=== PATIENT | female | born 1985 | race Caucasian/White ===

== ENCOUNTER 2018-07-30 00:11 | Emergency (ER) | payer BC ==
--- NOTE | 2018-07-30 00:46 | ED ---
Lower Extremity - HPI Summary HPI Summary: 33-year-old female presents with complaints of left ankle pain. States that she was walking down a wet, slippery slope and she slipped causing a inversion injury to the ankle approximately 20 minutes prior to arrival. She was unable to bear weight immediately after the injury nor in the emergency room. Denies numbness or tingling. - History of Current Complaint Chief Complaint: EDExtremityLower Stated Complaint: "SLIPPED ON ICE AND HURT ANKLE" PER PT Time Seen by Provider: 07/30/18 00:20 Hx Obtained From: Patient Pain Intensity: 5 - Allergies/Home Medications Allergies/Adverse Reactions: Allergies Allergy/AdvReac Type Severity Reaction Status Date / Time nickel Allergy Swelling Verified 07/30/18 00:16 PMH/Surg Hx/FS Hx/Imm Hx Previously Healthy: Yes - Denies significant PMH - Surgical History Surgery Procedure, Year, and Place: None Infectious Disease History: No Infectious Disease History: Denies: Traveled Outside the [place] in Last 30 Days - Family History Known Family History: Positive: Non-Contributory - Social History Lives: With Family Review of Systems Constitutional: Negative Cardiovascular: Negative Respiratory: Negative Gastrointestinal: Negative Genitourinary: Negative Positive: Other - See HPI Positive: Bruising Negative: Paresthesia, Numbness All Other Systems Reviewed And Are Negative: Yes Physical Exam - Summary Physical Exam Summary: GENERAL APPEARANCE: Well developed, well nourished, alert and cooperative, and appears to be in no acute distress. CARDIAC: Normal S1 and S2. No S3, S4 or murmurs. Rhythm is regular. There is no peripheral edema, cyanosis or pallor. Extremities are warm and well perfused. Capillary refill is less than 2 seconds. Peripheral pulses intact. LUNGS: Clear to auscultation without rales, rhonchi, wheezing or diminished breath sounds. ABDOMEN: Positive bowel sounds. Soft, nondistended, nontender. No guarding or rebound. No masses or hepatosplenomegally. MUSKULOSKELETAL: Tenderness over the left medial malleolus and lateral malleolus with ecchymosis and moderate edema over the lateral malleolus. ROM limited by pain. Circulation and sensation intact distally. SKIN: Skin normal color, texture and turgor with no lesions or eruptions. Vital Signs On Initial Exam: Initial Vitals Temp Pulse Resp BP Pulse Ox 99.2 F 106 16 142/95 95 03/23/19 00:12 07/30/18 00:12 07/30/18 00:12 07/30/18 00:12 07/30/18 00:12 Procedures - Splinting Left Lower Extremity Location: Left lower leg Hand-Made Type: orthoglass Splint: Posterior short leg with foot at 90 degrees Pre-Proc Neuro Vasc Exam: normal Post-Proc Neuro Vasc Exam: normal Diagnostics - Vital Signs Vital Signs Temp Pulse Resp BP Pulse Ox 07/30/18 00:12 99.2 F 106 16 142/95 95 - Laboratory Lab Statement: Any lab studies that have been ordered have been reviewed, and results considered in the medical decision making process. - Radiology No standard instances Radiology Interpretation Completed By: ED Physician - Bimalleolar fracture of the left ankle with spacing though the joint space maintained Lower Extremity Course/Dx - Course Course Of Treatment: 33-year-old female presents with complaints of left ankle pain. States that she was walking down a wet, slippery slope and she slipped causing a inversion injury to the ankle approximately 20 minutes prior to arrival. She was unable to bear weight immediately after the injury nor in the emergency room. Denies numbness or tingling. Afebrile. Vital signs stable. Exam was remarkable for tenderness over the left medial malleolus and lateral malleolus with ecchymosis and moderate swelling over the lateral malleolus. Patient declined pain medication. X-ray shows a bimalleolar fracture of the left ankle. She was placed in a short posterior leg splint. Circulation and sensation were intact. Post-application. She was provided crutches and is to remain nonweightbearing until she follows up with orthopedic surgery within 3 days. A prescription for naproxen 500 mg 1 tablet every 12 hours for 5-7 days then every 12 hours as needed was sent to the pharmacy. Anticipatory guidance and warning symptoms are reviewed with the patient. Verbalizes understanding and agrees with plan of care. - Diagnoses Differential Diagnosis/HQI/PQRI: Positive: Contusion, Dislocation, Fracture ( Closed), Sprain Provider Diagnoses: Closed bimalleolar fracture of left ankle Discharge - Sign-Out/Discharge Documenting (check all that apply): Patient Departure Patient Received Moderate/Deep Sedation with Procedure: No - Discharge Plan Condition: Stable Disposition: HOME Prescriptions: Naproxen [Naproxen 500 mg tab] 500 mg PO Q12HR #30 tablet Patient Education Materials: Ankle Fracture (ED), Crutch Instructions (ED), Splint Care (ED) Referrals: No Primary Care Phys,NOPCP [Primary Care Provider] - Odessa Marr MD [Medical Doctor] - Additional Instructions: The x-ray performed in the emergency room tonight shows an unstable fracture of your left ankle. You will need to wear the splint that was applied at all times and remained nonweightbearing until you follow-up with the orthopedic surgeon. Apply ice to the affected area for 15-20 minutes at least 4 times a day to help with the pain and swelling. Be sure to keep her foot elevated while sitting to help reduce swelling. Take naproxen 500 mg 1 tablet every 12 hours with food for the next 5-7 days then may take every 12 hours as needed for pain. Follow-up with orthopedic surgery within 3 days. Call first thing on Wednesday morning to schedule an appointment. Return to the emergency room if you have severe pain that is not managed with pain medication, your foot or toes become cool and turning a pale or bluish color, he developed numbness or tingling in the foot or toes, or have any worsening of symptoms. - Billing Disposition and Condition Condition: STABLE Disposition: Home
[2018-07-30 01:43] VITALS: BP 161/84
== END 2018-07-30 01:40 | disposition home or self-care (01) ==
LOC: ED 00:11
DX: S82.855A Nondisplaced trimalleolar fracture of left lower leg, initial encounter for closed fracture (principal); X50.1XXA Overexertion from prolonged static or awkward postures, initial encounter; Y93.01 Activity, walking, marching and hiking; Y92.89 Other specified places as the place of occurrence of the external cause; Z91.048 Other nonmedicinal substance allergy status
CPT/HCPCS: 99283

== ENCOUNTER 2018-08-04 14:10 | Day surgery (SDC) | payer BC ==
[~2018-08-04 14:10] MED LIST: Buffered Lidocaine 1% SYRIN* 1 ML/SYRINGE INTRADERM ONE; Lactated Ringers 1000 ML Bag* 1,000 ML IV SCH; Sodium Citrate/Citric Acid* 15 ML UDC PO ONE
[2018-08-04] MEDS ORDERED: Sodium Citrate/Citric Acid* 15 ML UDC ONE (14:33)
[2018-08-04] MEDS ORDERED: Propofol* 0 MG/0 ML BTL ONE (14:36)
[2018-08-04] MEDS ORDERED: ceFAZolin 2 GM in NS PREMIX(*) 2 GM/100 ML BAG IVPB ONE (14:41)
[2018-08-04] MEDS ORDERED: fentaNYL* 50 MCG/ML 2 ML VIAL (100 MCG VIAL) ONE ×3 (15:18→17:10)
[2018-08-04] MEDS ORDERED: Propofol* 10 MG/ML 20 ML BTL ONE (15:19)
[2018-08-04] MEDS ORDERED: Dexamethasone IV* 4 MG/ML 1 ML (4 MG) ONE (15:19)
[2018-08-04] MEDS ORDERED: Lidocaine 2% PF * 5 ML VIAL ONE (15:19)
[2018-08-04] MEDS ORDERED: Midazolam* 1 MG/ML 2 ML VIAL (2 MG) ONE (15:19)
[2018-08-04] MEDS ORDERED: Ketorolac INJ* 30 MG/ML 1 ML VIAL ONE (15:19)
[2018-08-04] MEDS ORDERED: Ondansetron INJ* 2 MG/ML VIAL IV PRN (16:20)
[2018-08-04] MEDS ORDERED: Naloxone* 0.4 MG/ML 1 ML VIAL IV PRN (16:20)
[2018-08-04] MEDS ORDERED: Bupivacaine 0.5%* 50 ML VIAL ONE (16:34)
--- NOTE | 2018-08-04 17:06 | OP ---
Operative Report - Blank - Operative Report Date of Operation: 08/04/18 Note: PATIENT: Tonya Burger DATE OF : 1985 DATE OF SURGERY: 08/04/2018 SURGEON: Gaurav Claudio MD WAREHOUSE CHECKER: FARZAD Wynn, whos assistance was necessary for positioning, retraction, help with instrumentation, and closure. ANESTHESIOLOGIST: Dr. Tejeda PREOPERATIVE DIAGNOSIS: Left trimalleolar ankle fracture POSTOPERATIVE DIAGNOSIS: Left trimalleolar ankle fracture OPERATION: 1. Left trimalleolar ankle fracture open reduction and internal fixation of medial and lateral malleoli. 2. Stress views performed by surgeon utilizing fluoroscopy under anesthesia. ANESTHESIA: General IMPLANTS: Arthrex ankle fracture set plate and screws TOURNIQUET TIME: Less than 1 hour with a well-padded thigh tourniquet at 250mmHg SPECIMENS: none ESTIMATED BLOOD LOSS: minimal COMPLICATIONS: none STATUS: Stable from the operating room to the recovery room and then home. INDICATIONS FOR PROCEDURE: Tonya sustained a closed left ankle fracture. Both operative and non operative treatment alternatives were reviewed. Further, the nature and risks of surgery were reviewed in careful detail, in the office as well as the pre-operative holding area. Our discussions regarding the risks of surgery included, but were not limited to, infection, wound problems, nerve injury, neuroma, RSD, persistent symptoms, blood clot, nonunion, malunion, post-traumatic arthritis, hardware failure, failure of the surgery, and even the remote chance of catastrophic complication, including loss of limb. DESCRIPTION OF PROCEDURE: The patient was seen in the preoperative holding unit and informed written consent was obtained. The appropriate extremity was marked. The patient was then brought to the operating room and carefully positioned on the operating room table. Anesthesia was induced. All bony prominences were padded with great care. A well-padded thigh tourniquet was placed. A chlorhexidine based pre- scrub was performed followed by a chloraprep prep and drape in standard sterile fashion. A surgical safety pause was then conducted in which we confirmed the appropriate patient, extremity, planned procedure, availability of equipment, indication and administration of prophylactic antibiotics, and DVT prophylaxis in the form of a compression boot on the non-surgical extremity. I began with Esmarch exsanguination of the limb and inflated the tourniquet. I then utilized a laterally based incision overlying the distal fibula. Great care was taken to protect the superficial peroneal nerve, which was not visualized within the field of view. I dissected down through the soft tissue layers to expose the distal fibula. I then exposed the fracture. Fracture hematoma was removed. I gained a reduction utilizing a pointed reduction clamp. I placed an Arthrex anatomic fibula plate laterally and then confirmed the reduction and the position of the plate fluoroscopically. I placed screws to hold the plate to the bone. The provisional fixation was removed and then I again confirmed fluoroscopically the appropriate position of the plate and screw lengths. At this point, I provisionally tacked the lateral incision closed while I turned my attention medially. I made an approximately 4cm incision over the medial malleolus. The fracture was exposed and hematoma was removed. Reduction of the medial malleolar fracture was obtained with a pointed reduction clamp. I placed guidewires for a 4.0 mm cannulated screw. I confirmed the position of the guidewire fluoroscopically. I then overdrilled the wire and placed a partially threaded 4.0 mm cannulated screw with a washer due to the small size of the fragment. I then removed the guidewire and obtained fluoroscopic images. At this point, I performed a stress fluoroscopic examination. I utilized a Cotton test, as well as an external rotation stress test, to evaluate the distal tib-fib syndesmosis. There was no instability appreciated through the syndesmosis. I also performed a posteriorly directed stress test and there was no posterior instability appreciated, so I elected to treat the posterior malleolar fracture in a closed manner. At this point, we irrigated copiously and then closed in layers meticulously utilizing 3-0 Monocryl for the deep and subdermal layers and 3-0 nylon for the skin. A sterile dressing was then applied followed by a splint with the ankle in a neutral position. The patient was then awakened from anesthesia and transferred to the recovery room in stable condition. There were no complications. All needle and sponge counts were correct at the end of the case. ATTESTATION: I attest I was present and scrubbed and performed the critical portions of the procedure myself. POSTOPERATIVE PLAN: The postop plan is for [id number] for an anticipated duration of 6 weeks. Follow-up will be in 2 weeks. At that time we will likely transition into a [id number] short leg cast.
[2018-08-04] MEDS: fentaNYL* 50 MCG/ML 2 ML VIAL (100 MCG VIAL) IV PRN ×2 (17:14→17:39)
[2018-08-04] MEDS ORDERED: oxyCODONE TAB* 5 MG TAB ONE (17:29)
[2018-08-04 18:28] VITALS: BP 137/87
== END 2018-08-04 19:01 | disposition home or self-care (01) ==
LOC: OR 14:10
PROVIDERS: ATTEND Orthopaedic Surgery
DX: S82.852A Displaced trimalleolar fracture of left lower leg, initial encounter for closed fracture (principal); W00.0XXA Fall on same level due to ice and snow, initial encounter; Y92.9 Unspecified place or not applicable; Z72.0 Tobacco use; Z68.33 Body mass index [BMI] 33.0-33.9, adult
CPT/HCPCS: 76000; 81025; A9270-GY; C1713; C1776; J0690; J1100; J1885; J2250; J2704; J3010

== ENCOUNTER 2021-11-11 18:06 | Inpatient (IN) ==
[2021-11-11] MEDS ORDERED: Lactated Ringers 1000 ml BAG 1,000 ML IV ONE (18:45)
[2021-11-11] MEDS ORDERED: Buffered Lidocaine 1% SYRIN 1 ml INTRADERM ONE (18:45)
[2021-11-11] MEDS ORDERED: Dinoprostone 10 MG VAG.SUPP VAGINAL ONE (18:45)
[2021-11-11 19:46] LABS: Urine Benzodiazepine Screen None Detected (None Detect); Urine Cannabinoids Screen None Detected (None Detect); Urine Opiates Screen None Detected (None Detect)
[2021-11-11 21:37] LABS: Hematocrit 34 % (35-47); Hemoglobin 10.9 g/dL (12.0-16.0); Mean Corpuscular HGB Conc 32 g/dL (31-36); Mean Corpuscular Hemoglobin 30 pg (27-31); Mean Corpuscular Volume 91 fL (80-97); Red Blood Count 3.68 10^6 /uL (3.70-4.87); Red Cell Distribution Width 14 % (10-15)
[2021-11-11 22:02] LABS: ABS Basophils 0.1 10^3/ul (0-0.2); ABS Eosinophils 0.2 10^3/ul (0-0.6); ABS Lymphocytes 2.9 10^3/ul (1.0-4.8); ABS Monocytes 1.1 10^3/ul (0-0.8); ABS Neutrophils 10.8 10^3/ul (1.5-7.7); Eosinophil % 1.5 %; Lymphocyte % 19.1 %; Mean Platelet Volume 10.6 fL (7.4-10.4); Platelet Count 188 10^3/uL (150-450)
[2021-11-11 22:58] LABS: HIV 4th Generation Nonreactive (Nonreactive)
[2021-11-12] MEDS ORDERED: Penicillin G Potassium IV 5,000,000 UNITS in NS 0.9% 100 ml BAG 100 ML IVPB ONE (09:00)
[2021-11-12] MEDS ORDERED: miSOPROStol 100 mcg TAB VAGINAL ONE (10:00)
[2021-11-12] MEDS ORDERED: Oxytocin in LR 20 UNITS/1,000 ML BAG IVPB SCH (11:00)
[2021-11-12] MEDS: Penicillin G Potassium IV 3,000,000 UNITS in NS 0.9% 100 ml BAG 100 ML IVPB SCH ×2 (19:38→23:38)
[2021-11-12] MEDS ORDERED: OBEPIDURAL (200 ML) 200 ML EPIDURAL ONE (20:51)
[2021-11-12] MEDS ORDERED: Lidocaine 1% w EPI 1:200,000 SDV 30 ML VIAL ONE (23:06)
[2021-11-12] MEDS ORDERED: Phenylephrine 40 mcg/mL 10mL (400mcg) SYRINGE IV PUSH PRN ×2 (23:44)
[2021-11-12] MEDS ORDERED: Lactated Ringers 1000 ml BAG 1,000 ML IV ONE (23:44)
[2021-11-12] MEDS ORDERED: Lactated Ringers 1000 ml BAG 500 ML IV PRN ×2 (23:44)
[2021-11-12] MEDS ORDERED: Sodium Citrate/Citric Acid LIQ 15 ML UDC PO PRN (23:44)
[2021-11-12] MEDS ORDERED: Lactated Ringers 1000 ml BAG 1,000 ML IV SCH ×2 (23:45)
[2021-11-13] MEDS: Penicillin G Potassium IV 3,000,000 UNITS in NS 0.9% 100 ml BAG 100 ML IVPB SCH ×4 (04:06→20:07)
[2021-11-13] MEDS ORDERED: Lidocaine 1% MPF 5 ML VIAL ONE (08:39)
[2021-11-13] MEDS ORDERED: Witch Hazel PAD JAR TOPICAL PRN (09:09)
[2021-11-13] MEDS ORDERED: RHO D Immune Globulin (HUMAN) 300 MCG = 1,500 I.U. INJ IM PRN (09:09)
[2021-11-13] MEDS ORDERED: Oxytocin in LR 20 UNITS/1,000 ML BAG IVPB SCH (10:00)
[2021-11-13] MEDS ORDERED: Lactated Ringers 1000 ml BAG 1,000 ML IV SCH (10:00)
[2021-11-13] MEDS: Dibucaine 1% OINT 28.35 GM TUBE PR PRN (12:40)
[2021-11-13] MEDS: OBEPIDURAL (200 ML) 200 ML EPIDURAL SCH (19:01)
[2021-11-14 06:37] LABS: ABS Eosinophils 0.1 10^3/ul (0-0.6); ABS Lymphocytes 1.6 10^3/ul (1.0-4.8); ABS Monocytes 0.6 10^3/ul (0-0.8); ABS Neutrophils 7.8 10^3/ul (1.5-7.7); Eosinophil % 1.1 %; Hematocrit 29 % (35-47); Hemoglobin 9.6 g/dL (12.0-16.0); Lymphocyte % 15.9 %; Mean Corpuscular HGB Conc 34 g/dL (31-36); Mean Corpuscular Hemoglobin 31 pg (27-31); Mean Corpuscular Volume 91 fL (80-97); Mean Platelet Volume 9.5 fL (7.4-10.4); Platelet Count 152 10^3/uL (150-450); Red Blood Count 3.14 10^6 /uL (3.70-4.87); Red Cell Distribution Width 14 % (10-15); White Blood Count 10.1 10^3/uL (3.5-10.8)
[2021-11-14] MEDS: OBEPIDURAL (200 ML) 200 ML EPIDURAL SCH (06:53)
[2021-11-14] MEDS: Dibucaine 1% OINT 28.35 GM TUBE PR PRN (21:09)
[2021-11-15 07:55] VITALS: BP 130/78
== END 2021-11-15 11:27 | disposition home or self-care (01) | DRG 560 ==
LOC: MCHOBOUT 18:06 → MCHOB 19:10
PROVIDERS: ADMIT Advanced Practice Midwife; ATTEND Midwife